=== PATIENT | male | born 1970 | race Caucasian/White ===

== ENCOUNTER 2024-02-04 11:36 | Outpatient (AMB) | payer OTHER, SELFPAY ==
--- NOTE | 2024-02-04 12:06 | HO.NEPHOV ---
Vital Signs 02/04/24 12:09 Height 5 ft 8 in Weight 329 lb 2 oz BMI 50.0 BP 130/90 H Blood Pressure Location Lt brachial Position Sitting Pulse 96 Pulse Source Pulse Oximeter Pulse Oximetry (%) 98 Oxygen Delivery Method Room Air Intake Visit Reasons: DX- CKD [facility] Records/ [facility] Phytopathology Teacher Required: No Accompanied by: Self / Same As Patient Allergies No Known Allergies Allergy (Verified 02/04/24 12:11) HPI Comments Details: Thank you for referring Mr. Emery for evaluation of chronic kidney disease. He recently was in the hospital for right armpit and chest pain with redness and fever . He was found to have purulent cellulitis at that time. He was tachycardic with low normal blood pressure, high lactate and a serum creatinine of 2.05. He underwent a chest CT which showed right chest wall cellulitis without drainable fluid collection. He also had an incidental finding of aortic aneurysm 4.7 cm. He had a serum creatinine 1.2 in 2017. He was having poor oral intake. He was thought to have tubular injury. He was treated with intravenous antibiotics, supportive care with improvement in serum creatinine he had a wound VAC and VNA services. His wound VAC was removed yesterday. He has gained 100 lb of weight over the last year. He feels he was depressed and has been having less activity and eating all the time. He denies any awareness of CKD in the past. He denies any chest pain, shortness of breath, proximal nocturnal dyspnea, orthopnea, pedal edema, urinary symptoms, renal calculus, history of carotid stenosis, coronary artery disease, congestive heart failure, CVA, peripheral arterial disease, excessive nonsteroidal anti-inflammatory medication intake, new bone or back pain, sinusitis, epistaxis, hematemesis, melena, hemoptysis, joint swellings, new skin rashes. He feels improved. [facility] Medical History (Updated 02/04/24 @ 12:30 by Compa Hillman MD) Chronic kidney disease Cellulitis Surgical History (Updated 02/04/24 @ 12:13 by Lilian Simon MA) History of removal of cyst History of hand surgery History of excision of lesion Family History (Updated 02/03/24 @ 15:18 by Lilian Simon MA) Father Diabetes Heart attack Mother Diabetes Heart attack Brother Diabetes Hypertension Heart attack Social History (Updated 02/04/24 @ 12:12 by Lilian Simon MA) Alcohol intake: never Patient Tobacco Use Status: Current someday Tobacco user Physical Exam Vital Signs: Last Vital Signs Pulse 96 02/04/24 12:09 BP 130/90 H 02/04/24 12:09 Pulse Ox 98 02/04/24 12:09 Oxygen Delivery Method Room Air 02/04/24 12:09 BMI result Body Mass Index 50.0 Const General: comfortable and no acute distress Orientation/consciousness: patient oriented x3 HEENT Head: Yes normocephalic Mouth: Normal oral and palatal mucosa present Eyes EOM: EOMs intact bilaterally Neck Neck: Yes supple Resp Auscultation: clear to auscultation bilaterally Cardio Jugular venous distension: no JVD Rate: regular rate GI Palpation (GI): Soft to palpation Auscultation: normal bowel sounds General: Yes no CVA tenderness Back/Spine/Pelvis Back: no CVA tenderness Skin General skin exam: no rashes or lesions noted Neuro General: patient oriented x3 and moves all extremities Extrem General: Yes no pedal edema Results Reviewed Nephrology Results: No Data to Display Assessment & Plan Assessment & Plan (1) CKD (chronic kidney disease) stage 2, GFR 60-89 ml/min: Code(s): N18.2 - Chronic kidney disease, stage 2 (mild) Category: Medical Plan Rodrigo most likely has mild CKD due to vascular etiology. He has an aortic aneurysm. He recently had CARLO due to tubular injury from sepsis. His serum creatinine improved to 1.3. His urine output is good. There is no reason to suspect any obstructive uropathy.. Mag infectious GN was in the differential but unlikely. He is not taking any nonsteroidal anti-inflammatories. He maintains good hydration. He is at risk for FSGS. He is to lose weight. His blood pressure needs to be kept at goal. I ordered detailed workup including imaging studies blood work and urine , including creatinine clearance. Time spent retrieving all the data from [facility] records, patient encounter and documentation 62 minutes. Answered all questions. Follow-up appointment given. Orders: Orders Creatinine Today N18.2 - Chronic kidney disease, stage 2 (mild) Blood Urea Nitrogen Today N18.2 - Chronic kidney disease, stage 2 (mild) Electrolytes Today N18.2 - Chronic kidney disease, stage 2 (mild) Anti DNA DS Antibody Today N18.2 - Chronic kidney disease, stage 2 (mild) Proteinase 3 PR3 Antibodies Today N18.2 - Chronic kidney disease, stage 2 (mild) Myeloperoxidase Antibody Today N18.2 - Chronic kidney disease, stage 2 (mild) Anti Glomerular Basement Memb Today N18.2 - Chronic kidney disease, stage 2 (mild) UA and rflx microscopic Today N18.2 - Chronic kidney disease, stage 2 (mild) Creatinine Clearance Urine 24U Today N18.2 - Chronic kidney disease, stage 2 (mild) US renal BI Today N18.2 - Chronic kidney disease, stage 2 (mild) Calcium Today N18.2 - Chronic kidney disease, stage 2 (mild) Complement C3 Today N18.2 - Chronic kidney disease, stage 2 (mild) OLI Reflex Titer and Pattern Today N18.2 - Chronic kidney disease, stage 2 (mild) Phospholipase A2 Receptor Pnl Today N18.2 - Chronic kidney disease, stage 2 (mild) Immunofixation Pnl, Serum Today N18.2 - Chronic kidney disease, stage 2 (mild) Protein Creatinine Ratio, Ur Today N18.2 - Chronic kidney disease, stage 2 (mild) Coding Level of Care Code New Pt Level 5 (15262) Diagnoses CKD (chronic kidney disease) stage 2, GFR 60-89 ml/min N18.2
[2024-02-04 12:09] VITALS: BP 130/90; PULSE 96; O2SAT 98; BMI 50.0
== END 2024-02-04 12:38 | disposition home or self-care (01) ==
PROVIDERS: PCP Family Medicine Geriatric Medicine; Visit Provider Internal Medicine Nephrology
DX: I13.10 Hypertensive heart and chronic kidney disease without heart failure, with stage 1 through stage 4 chronic kidney disease, or unspecified chronic kidney disease (principal); N18.2 Chronic kidney disease, stage 2 (mild)
CPT/HCPCS: 99205

== ENCOUNTER → 2024-02-04 11:36 | Outpatient (BNVA) | payer MEDICAID, SELFPAY | PROVIDERS: PCP Family Medicine Geriatric Medicine; Visit Provider Internal Medicine Nephrology | DX: N18.2 Chronic kidney disease, stage 2 (mild) (principal); I71.9 Aortic aneurysm of unspecified site, without rupture | CPT/HCPCS: 99202 ==

== ENCOUNTER 2024-02-19 09:59 | Outpatient (REF) | payer OTHER, SELFPAY ==
--- NOTE | ~2024-02-19 | US_ITS ---
EXAMINATION: US RETROPERITONEAL COMPLETE (RENAL) CLINICAL INFORMATION: Chronic kidney disease. Stage II. COMPARISON: None available. TECHNIQUE: Real-time imaging of the kidneys and bladder. FINDINGS: RIGHT KIDNEY: 10.1 x 4.8 x 5.2 cm (SAG x AP x TRV). The kidney is normal in size, contour, and echogenicity. Renal cortical thickness is normal. No calculi or focal parenchymal lesions. No hydronephrosis. LEFT KIDNEY: 11.9 x 5.5 x 6.6 cm (SAG x AP x TRV). The kidney is normal in size, contour, and echogenicity. Renal cortical thickness is normal. No calculi. Possible mid pole cyst measures 9 x 8 x 5 mm. No hydronephrosis. US/US renal BI IMPRESSION: Technically limited study. Possible mid pole left renal cyst measuring 9 x 8 x 5 mm. Short interval follow-up imaging is recommended. Electronically signed by: Jovani Slater MD 02/19/2024 03:57 PM EDT
== END 2024-02-19 10:00 | disposition home or self-care (01) ==
LOC: HO.US 09:59
PROVIDERS: Visit Provider Internal Medicine Nephrology
DX: N18.2 Chronic kidney disease, stage 2 (mild) (principal)
CPT/HCPCS: 76775

== ENCOUNTER 2024-03-10 11:33 | Outpatient (REF) | payer OTHER, SELFPAY ==
[2024-03-10 12:05] LABS: Appearance Urine Clear; Color Urine Dark Yellow; Glucose Urine UA Negative (Negative); Leukocyte Esterase Urine Negative (Negative); Nitrite Urine Negative (Negative); PH 5.5 (5.0-9.0); Specific Gravity - Urine 1.025 (1.005-1.025); UMIC TRIGGER UA YES; Urine Blood Negative (Negative); Urine Ketones Negative (Negative); Urine Protein 30 (1+) mg/dL (Neg-Trace)
[2024-03-10 12:34] LABS: Bacteria Urine None Seen (None Seen); RBC Urine 0-2 /HPF (0-2); Squamous Epithelial Cell Urine 0-2 /HPF (0-2); WBC Urine 0-5 /HPF (0-5)
[2024-03-10 12:50] LABS: Anion Gap 13 (12-20); Blood Urea Nitrogen 21 mg/dL (9-16); Calcium 9.5 mg/dL (8.4-10.2); Carbon Dioxide 25 mmol/L (22-29); Chloride 107 mmol/L (96-108); Estimated Glomerular Filt Rate 51; Potassium 3.7 mmol/L (3.3-5.1); Sodium 141 mmol/L (135-145)
[2024-03-10 12:55] LABS: Creatinine, mg/dL 202.49
[2024-03-10 13:01] LABS: Creatinine (CrCl) 1.44 mg/dL (0.5-1.4); Creatinine Clearance 180.6 mL/min (85-125); Creatinine, 24Hr Urine 3.7 G/Day (1.0-2.0); Total Volume 24 Hour Urine 1850 mL
[2024-03-11 11:54] LABS: Complement C3 163 mg/dL (82-185)
[2024-03-11 21:18] LABS: Anti DNA DS Antibody <1 IU/mL; Anti Glomerular Basement Memb <1.0 AI; Myeloperoxidase Antibody <1.0 AI; Proteinase 3 PR3 Antibodies <1.0 AI
[2024-03-14 13:49] LABS: Anti Nuclear Antibody Screen NEGATIVE (NEGATIVE)
[2024-03-15 18:22] LABS: IgA 353 mg/dL (47-310); IgG 952 mg/dL (600-1640); IgM 55 mg/dL (50-300)
[2024-03-17 23:34] LABS: Phospholipase A2 IgG ELISA <4 RU/mL; Phospholipase A2 IgG IFA NEGATIVE (NEGATIVE)
== END 2024-03-10 11:34 | disposition home or self-care (01) ==
LOC: HO.LAB 11:33
PROVIDERS: Visit Provider Internal Medicine Nephrology
DX: N18.2 Chronic kidney disease, stage 2 (mild) (principal)
CPT/HCPCS: 36415; 80051; 81001; 81003; 82310; 82565; 82575; 82784; 83520; 84520; 86021; 86038; 86160; 86225; 86255; 86334

== ENCOUNTER 2024-03-22 10:49 | Outpatient (AMB) | payer MEDICAID, SELFPAY ==
--- NOTE | 2024-03-22 10:54 | HO.NEPHOV_ITS ---
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 Emery was seen in follow up for his chronic kidney disease. He recently was in the hospital for right armpit and chest pain with redness and fever . He was found to have purulent cellulitis at that time. He was tachycardic with low normal blood pressure, high lactate and a serum creatinine of 2.05. He underwent a chest CT which showed right chest wall cellulitis without drainable fluid collection. He also had an incidental finding of aortic aneurysm 4.7 cm. He had a serum creatinine 1.2 in 2017. He was having poor oral intake. He was thought to have tubular injury. He was treated with intravenous antibiotics, supportive care with improvement in serum creatinine he had a wound VAC and VNA services. He has gained 100 lb of weight over the last year. He feels he was depressed and has been having less activity and eating all the time. He denies any awareness of CKD in the past. He denies any chest pain, shortness of breath, proximal nocturnal dyspnea, orthopnea, pedal edema, urinary symptoms, renal calculus, history of carotid stenosis, coronary artery disease, congestive heart failure, CVA, peripheral arterial disease, excessive nonsteroidal anti- inflammatory medication intake, new bone or back pain, sinusitis, epistaxis, hematemesis, melena, hemoptysis, joint swellings, new skin rashes. He feels improved. [facility] Medical History (Updated 03/22/24 @ 11:06 by Compa Hillman MD) Chronic kidney disease Cellulitis Surgical History (Updated 02/04/24 @ 12:13 by Lilian Simon MA) History of removal of cyst History of hand surgery History of excision of lesion Family History (Updated 02/03/24 @ 15:18 by Lilian Simon MA) Father Diabetes Heart attack Mother Diabetes Heart attack Brother Diabetes Hypertension Heart attack Social History (Updated 02/04/24 @ 12:12 by Lilian Simon MA) Alcohol intake: never Patient Tobacco Use Status: Current someday Tobacco user Review of Systems Const All systems reviewed & are unremarkable except as noted in HPI and below Physical Exam Const General: comfortable and no acute distress Orientation/consciousness: patient oriented x3 HEENT Head: Yes normocephalic Mouth: Normal oral and palatal mucosa present Eyes EOM: EOMs intact bilaterally Neck Neck: Yes supple Resp Auscultation: clear to auscultation bilaterally Cardio Jugular venous distension: no JVD Rate: regular rate GI Palpation (GI): Soft to palpation Auscultation: normal bowel sounds General: Yes no CVA tenderness Back/Spine/Pelvis Back: no CVA tenderness Skin General skin exam: no rashes or lesions noted Neuro General: patient oriented x3 and moves all extremities Extrem General: Yes no pedal edema Results Reviewed Nephrology Results: Sodium 141 mmol/L (135-145) 03/10/24 Potassium 3.7 mmol/L (3.3-5.1) 03/10/24 Chloride 107 mmol/L (96-108) 03/10/24 Carbon Dioxide 25 mmol/L (22-29) 03/10/24 BUN 21 mg/dL (9-16) H 03/10/24 Creatinine 1.44 mg/dL (0.5-1.4) H 03/10/24 Calcium 9.5 mg/dL (8.4-10.2) 03/10/24 Urine Protein 30 (1+) mg/dL (Neg-Trace) H 03/10/24 Renal US 02/19/24 Assessment & Plan Assessment & Plan (1) CKD (chronic kidney disease) stage 2, GFR 60-89 ml/min: Code(s): N18.2 - Chronic kidney disease, stage 2 (mild) Category: Medical (2) Renal cyst: Code(s): N28.1 - Cyst of kidney, acquired Category: Medical Plan Rodrigo may have mild CKD due to vascular etiology given he has an aortic aneurysm. He recently had CARLO due to tubular injury from sepsis. His serum creatinine now is around 1.4. His urine output is good. There is no reason to suspect any obstructive uropathy. He is not taking any nonsteroidal anti- inflammatories. He maintains good hydration. He is at risk for FSGS. He is to lose weight. His blood pressure needs to be kept at goal. His 24 hour urine for creatinine clearance was normal . He has mid pole left renal cyst measuring 9 x 8 x 5 mm. Radiology recommended short interval follow-up. Answered all questions Orders: Orders Creatinine 6 Months N18.2 - Chronic kidney disease, stage 2 (mild), N28.1 - Cyst of kidney, acquired Blood Urea Nitrogen 6 Months N18.2 - Chronic kidney disease, stage 2 (mild), N28.1 - Cyst of kidney, acquired Electrolytes 6 Months N18.2 - Chronic kidney disease, stage 2 (mild), N28.1 - Cyst of kidney, acquired Protein Creatinine Ratio, Ur 6 Months N18.2 - Chronic kidney disease, stage 2 (mild), N28.1 - Cyst of kidney, acquired Coding Level of Care Code Est Pt Level 4 (50492) Diagnoses CKD (chronic kidney disease) stage 2, GFR 60-89 ml/min N18.2 Renal cyst N28.1
[2024-03-22 10:59] VITALS: BP 122/88; PULSE 103; O2SAT 96; BMI 49.7
== END 2024-03-22 11:17 | disposition home or self-care (01) ==
PROVIDERS: PCP Family Medicine Geriatric Medicine; Visit Provider Internal Medicine Nephrology
DX: N18.2 Chronic kidney disease, stage 2 (mild) (principal); N28.1 Cyst of kidney, acquired
CPT/HCPCS: 99214

== ENCOUNTER → 2024-03-22 10:49 | Outpatient (BNVA) | payer MEDICAID, SELFPAY | PROVIDERS: PCP Family Medicine Geriatric Medicine; Visit Provider Internal Medicine Nephrology | DX: N28.1 Cyst of kidney, acquired (principal); N18.2 Chronic kidney disease, stage 2 (mild) | CPT/HCPCS: 99212 ==